=== PATIENT | female | born 1990 | race Caucasian/White ===

== ENCOUNTER 2021-06-21 10:48 | Emergency (ER) | payer OTHER, SELFPAY ==
[2021-06-21 10:58] VITALS: BP 119/59; PULSE 80; RESP 20; TEMP 36.6; O2SAT 100
--- NOTE | 2021-06-21 11:50 | ED.URI ---
HPI - URI/Sore Throat General Chief Complaint: Upper Respiratory Infection Stated Complaint: Sinus Pain/ Ear Pain Time Seen by Provider: 06/21/21 11:45 Source: patient and RN notes reviewed Mode of arrival: ambulatory Limitations: no limitations History of Present Illness HPI Narrative: Kendra is a 31-year-old female who ambulated to the [facility]. Patient states she has a 3-day history of severe left ear pain rating it a 9 out of 10. She states she has had sinus drainage and sinus pain with postnasal drainage and now she feels that she is starting to get short of breath. Patient has been taking Coricidin [id number] and Tylenol 3 without relief. Patient has a strong cardiac history and currently has a loop recorder in place. Patient has a history of bronchitis currently smokes 1 pack/day. MD elicited complaint: sinus pain Related Data Home Medications Medication Instructions Recorded Confirmed acetaminophen-codeine tablet 06/21/21 albuterol sulfate INHALATION 06/21/21 albuterol sulfate See Rx Instructions .ROUTE 06/21/21 06/21/21 .COMPLEX PRN alprazolam 06/21/21 cyclobenzaprine 10 mg PO TID PRN 06/21/21 06/21/21 diltiazem HCl PO 06/21/21 esomeprazole magnesium mg 06/21/21 hydroxyzine HCl 06/21/21 omeprazole 06/21/21 ondansetron 06/21/21 Allergies Allergy/AdvReac Type Severity Reaction Status Date / Time ciprofloxacin Allergy Unknown Unknown Verified 06/21/21 11:41 dexamethasone Allergy Unknown LOC Verified 10/20/18 10:51 diphenhydramine Allergy Unknown Rash Verified 06/21/21 11:41 divalproex sodium Allergy Unknown Unknown Verified 06/21/21 11:41 escitalopram Allergy Unknown Seizure Verified 06/21/21 11:42 levofloxacin Allergy Unknown Unknown Verified 06/21/21 11:41 metoclopramide Allergy Unknown Unknown Verified 06/21/21 11:41 venlafaxine Allergy Unknown Unknown Verified 06/21/21 11:41 prednisone AdvReac Heartburn Verified 06/21/21 11:41 Review of Systems Review of Systems: CONSTITUTIONAL: Denies body aches, fever, chills, or sweats. EYES: Denies visual changes, redness, or discharge. ENT: Denies rhinorrhea,+ congestion,+ sore throat, + otalgia. CARDIOVASCULAR: Denies chest pain, palpitations, or edema. RESPIRATORY: + cough + dyspnea. GASTROINTESTINAL: Denies abdominal pain, nausea, vomiting, or diarrhea. GENITOURINARY: Denies dysuria or hematuria. SKIN: Denies rash, itching, or wounds. MUSCULOSKELETAL: Denies back pain, joint pain, or myalgia. NEUROLOGIC: Denies headache, numbness, tingling, or weakness. PSYCH: Denies depression or anxiety. All systems reviewed & are unremarkable except as noted in HPI and below PMFSH Comments At time of signature, I have reviewed and agree with nursing past medical, surgical, social and family history unless otherwise noted. Please see nursing chart for further information. There is no relevant family history pertinent to the presenting complaint Exam Narrative: GENERAL: Well-appearing, well-nourished, and in no acute distress. HEAD: Normocephalic, atraumatic. EYES: EOMI. No redness or drainage. Conjunctivae normal. ENT: Mucous membranes pink and moist. Nasal membranes erythematous with clear rhinorrhea. Posterior pharynx is erythemic with no exudate with moderate amount of clear postnasal drainage. Right tympanic membrane is opaque with moderate bulging. Left tympanic membrane is bulging and erythemic. NECK: Normal AROM. Supple. left anterior lymphadenopathy. CHEST: No respiratory distress. Clear to auscultation. MUSCULOSKELETAL: No bony tenderness. EXTREMITIES: Normal range of motion. No edema. SKIN: Warm, dry, no rash. Capillary refill normal. Normal skin turgor. NEURO: No focal deficits. Alert and oriented x3. Gait steady. PSYCH: Normal affect. No signs of depression or anxiety. Course Vital Signs Vital signs: Vital Signs Temperature 36.6 C 06/21/21 10:58 Pulse Rate 80 06/21/21 10:58 Respiratory Rate 20 06/21/21 10:
== END 2021-06-21 12:00 | disposition home or self-care (01) ==
PROVIDERS: Emergency Provider Nurse Practitioner Family; PCP Physician Assistant
DX: H66.002 Acute suppurative otitis media without spontaneous rupture of ear drum, left ear (principal); I48.91 Unspecified atrial fibrillation; I25.2 Old myocardial infarction; J45.909 Unspecified asthma, uncomplicated; K21.9 Gastro-esophageal reflux disease without esophagitis; F41.9 Anxiety disorder, unspecified
CPT/HCPCS: 99213; G0463

== ENCOUNTER 2021-07-15 17:31 | Emergency (ER) | payer OTHER, SELFPAY ==
--- NOTE | 2021-07-15 17:35 | ED.SKABFB ---
HPI - Skin/Abscess/Foreign Bdy General Chief complaint: Skin/Abscess/Foreign Body Stated complaint: Rash Time Seen by Provider: 07/15/21 17:58 Source: patient and RN notes reviewed Mode of arrival: ambulatory Limitations: no limitations History of Present Illness HPI narrative: 31-year-old female presents concern for rash on her abdomen. She reports noticing a painful itchy rash in the fold of her abdomen. Reports she is currently experiencing a herpes outbreak. Reports she has a low-dose acyclovir that she takes when she has herpes outbreaks but it is not working for the rash on her stomach. Reports her herpes outbreak started 3 days ago rash on her stomach started yesterday. She reports general malaise and body aches. MD complaint: rash Related Data Home Medications Medication Instructions Recorded Confirmed acetaminophen-codeine 1 tablet PO TID PRN 06/21/21 07/15/21 albuterol sulfate 2 inh INHALATION QID PRN 06/21/21 07/15/21 albuterol sulfate See Rx Instructions .ROUTE 06/21/21 07/15/21 .COMPLEX PRN alprazolam 0.5 mg PO TID PRN 06/21/21 07/15/21 cyclobenzaprine 10 mg PO TID PRN 06/21/21 07/15/21 esomeprazole magnesium 40 mg PO BID 06/21/21 07/15/21 hydroxyzine HCl 25 mg PO TID PRN 06/21/21 07/15/21 omeprazole 20 mg PO DAILY 06/21/21 07/15/21 Allergies Allergy/AdvReac Type Severity Reaction Status Date / Time ciprofloxacin Allergy Unknown Unknown Verified 07/15/21 17:45 dexamethasone Allergy Unknown LOC Verified 07/15/21 17:45 diphenhydramine Allergy Unknown Rash Verified 07/15/21 17:45 divalproex sodium Allergy Unknown Unknown Verified 07/15/21 17:45 escitalopram Allergy Unknown Seizure Verified 07/15/21 17:45 levofloxacin Allergy Unknown Unknown Verified 07/15/21 17:45 metoclopramide Allergy Unknown Unknown Verified 07/15/21 17:45 venlafaxine Allergy Unknown Unknown Verified 07/15/21 17:45 prednisone AdvReac Heartburn Verified 07/15/21 17:45 Review of Systems Review of Systems: CONSTITUTIONAL: Reports malaise, chills, sweats, or fever. CARDIOVASCULAR: Denies chest pain, palpitations, or edema. RESPIRATORY: Denies cough or dyspnea. GASTROINTESTINAL: Denies abdominal pain, nausea, vomiting, diarrhea, bloody, or mucous stools. GENITOURINARY: Denies dysuria or hematuria. SKIN: Reports genital herpes outbreak, reports itchy stinging [id number] abdominal apron. MUSCULOSKELETAL: Reports myalgia. All systems reviewed & are unremarkable except as noted in HPI and below PMFSH Comments At time of signature, agree with nursing past medical, surgical, social and family history. There is no relevant family history pertinent to the presenting complaint Exam Narrative: GENERAL: Well-appearing, well-nourished, and in no acute distress. HEAD: Normocephalic, atraumatic. EYES: PERRLA, conjunctivae clear ENT: Mucous membranes moist. NECK: Supple. No lymphadenopathy CHEST: Clear to auscultation. No respiratory distress. HEART: Regular rate and rhythm. SKIN: Warm, dry. 2 erythematous slightly raised irregular patches noted in the fold of the abdominal, no vesicles or drainage noted NEURO: Alert and oriented x3. PSYCH: Normal mood and affect Course Course Emergency Course: Patient is aware of diagnosis, understands and agrees to treatment plan. Anticipatory guidance given. Patient agrees to follow-up as directed and is aware of reasons to seek care at the emergency department. Portions of this record may have been created with voice recognition software Vital Signs Vital signs: Reviewed. MDM - Skin/Abscess/Foreign Bdy MDM Narrative Medical decision making narrative: Does not appear at this time to be erythema multiforme, bullous, SJS, TEN; no evidence at this time to suggest RMSF, endocarditis or Lyme disease; patient looks well, nontoxic and is tolerating oral intake; no neurologic signs or symptoms; no headache, photophobia or neck pain; afebrile; appropriate for initial outpatient treatment; discussed the importance
[2021-07-15 17:36] VITALS: BP 117/71; PULSE 97; RESP 16; TEMP 36.8; O2SAT 100
== END 2021-07-15 18:19 | disposition home or self-care (01) ==
PROVIDERS: Emergency Provider Nurse Practitioner; PCP Physician Assistant
DX: R21 Rash and other nonspecific skin eruption (principal); I48.91 Unspecified atrial fibrillation; I25.2 Old myocardial infarction; K21.9 Gastro-esophageal reflux disease without esophagitis; F41.9 Anxiety disorder, unspecified
CPT/HCPCS: 99213; G0463

== ENCOUNTER 2021-11-05 11:06 | Emergency (ER) | payer OTHER, SELFPAY ==
[2021-11-05 11:15] VITALS: BP 125/78; PULSE 90; RESP 18; TEMP 36.8; O2SAT 99
--- NOTE | 2021-11-05 11:17 | ED.URI ---
HPI - URI/Sore Throat General Chief Complaint: Upper Respiratory Infection Stated Complaint: cough congestion sore throat Time Seen by Provider: 11/05/21 11:33 Source: patient and RN notes reviewed Mode of arrival: ambulatory Limitations: no limitations History of Present Illness HPI Narrative: 31-year-old female presents with concern for sore throat, nasal congestion, rhinorrhea, fatigue for 2 days. Reports history of strep throat. She reports she has been taking [id number] cold medicines but there are exacerbating her heartburn. She denies fever, body aches, shortness of breath. MD elicited complaint: sore throat Related Data Home Medications Medication Instructions Recorded Confirmed acetaminophen-codeine 1 tablet PO TID PRN 06/21/21 11/05/21 albuterol sulfate 2 inh INHALATION QID PRN 06/21/21 11/05/21 albuterol sulfate See Rx Instructions .ROUTE 06/21/21 11/05/21 .COMPLEX PRN alprazolam 0.5 mg PO TID PRN 06/21/21 11/05/21 cyclobenzaprine 10 mg PO TID PRN 06/21/21 11/05/21 esomeprazole magnesium 40 mg PO BID 06/21/21 11/05/21 hydroxyzine HCl 25 mg PO TID PRN 06/21/21 11/05/21 omeprazole 20 mg PO DAILY 06/21/21 11/05/21 ondansetron 4 mg PO DAILY PRN 11/05/21 11/05/21 Allergies Allergy/AdvReac Type Severity Reaction Status Date / Time ciprofloxacin Allergy Unknown Unknown Verified 11/05/21 11:24 dexamethasone Allergy Unknown LOC Verified 11/05/21 11:24 diphenhydramine Allergy Unknown Rash Verified 11/05/21 11:24 divalproex sodium Allergy Unknown Unknown Verified 11/05/21 11:24 escitalopram Allergy Unknown Seizure Verified 11/05/21 11:24 levofloxacin Allergy Unknown Unknown Verified 11/05/21 11:24 metoclopramide Allergy Unknown Unknown Verified 11/05/21 11:24 venlafaxine Allergy Unknown Unknown Verified 11/05/21 11:24 prednisone AdvReac Heartburn Verified 11/05/21 11:24 Review of Systems Review of Systems: CONSTITUTIONAL: Reports malaise, fatigue. Denies chills, sweats, or fever. EYES: Denies visual changes, redness, or discharge. ENT: Reports rhinorrhea, congestion, ear pressure and sore throat. CARDIOVASCULAR: Denies chest pain, palpitations, or edema. RESPIRATORY: Reports cough. Denies dyspnea. GASTROINTESTINAL: Denies abdominal pain, nausea, vomiting, diarrhea SKIN: Denies rash or itching. MUSCULOSKELETAL: Denies myalgia. NEUROLOGIC: Denies headache. All systems reviewed & are unremarkable except as noted in HPI and below PMFSH Comments At time of signature, agree with nursing past medical, surgical, social and family history. There is no relevant family history pertinent to the presenting complaint Exam Narrative: GENERAL: Well-appearing, well-nourished, and in no acute distress. HEAD: Normocephalic EYES: PERRLA, conjunctivae clear ENT: Nares clear, turbinates edematous and erythematous, clear discharge. Mucous membranes moist. TM pearly loaiza with dull light reflex bilaterally; no tragal tenderness. Oropharynx not erythematous without lesions. Tonsils not enlarged and without exudate, no drooling, no hoarseness, no trismus, uvula midline. NECK: Supple. No lymphadenopathy CHEST: Clear to auscultation, breath sounds equal. No wheezing, rhonchi, rales, or stridor. No respiratory distress, speaks in full sentences. HEART: Regular rate and rhythm. No murmur heard. SKIN: Warm, dry, no rash. NEURO: Alert and oriented x3. PSYCH: Normal mood and affect Course Course Emergency Course: Patient is aware of diagnosis, understands and agrees to treatment plan. Anticipatory guidance given. Patient agrees to follow-up as directed and is aware of reasons to seek care at the emergency department. Portions of this record may have been created with voice recognition software Level of Care: Express Care Visit Vital Signs Vital signs: Reviewed. MDM - URI/Sore Throat MDM Narrative Medical decision making narrative: Differential diagnosis considered: [place] virus, strep pharyngitis, allergic rhinitis, upper respiratory
--- NOTE | 2021-11-06 11:32 | PC.NURSE ---
PT CALLED STATING SHE WAS PROGRESSIVELY WORSE, [facility] HAS NEVER WORKED FOR HER. PT TESTED POSITIVE FOR STREP AND NEGATIVE COVID AND WANTED TO KNOW IF WE SENT A PCR. I INFORMED PT THAT RAPIDS HAVE A HIGH FALSE NEGATIVE BUT IF SHE WAS POSITIVE THE TREATMENT PLAN WOULD STILL BE THE SAME COVID IS A VIRUS. PT REPLIED, I REALIZE THAT I'M NOT STUPID . I TOLD PT I WOULD CHECK CHART AND CALL HER BACK SOON I COULD BECAUSE WE WERE BUSY AND HAD ALL OUR ROOMS FULL. I CALLED PT BACK, I INSTRUCTED PT THAT WE DID NOT SEND A PCR, BECAUSE SHE WAS POSITIVE FOR STREP. I INSTRUCTED PT THAT [facility] IS NUMBER ONE RECOMMENDED CHOICE FOR STREP AND THAT IF SHE FEELS THAT SHE IS WORSE SHE SHOULD GO TO THE ER. SHE HAS HAD A TOTAL OF 3 DOSES. ALSO INSTRUCTED PT TO FOLLOW UP WITH HER PCP IF SHE NEEDED TO IN 2 TO 3 DAYS. PT STATED THAT SHE WISHED THEY WOULD HAVE GIVEN HER A STRONGER ANTIBIOTIC. I AGAIN INFORMED PT THAT ACCORDING TO GUIDELINES [facility] IS THE NUMBER ONE CHOICE FOR STREP. PT UNDERSTOOD AND SAID, THANK YOU. JENNIFER UGARTE RN.
== END 2021-11-05 11:45 | disposition home or self-care (01) ==
PROVIDERS: Emergency Provider Nurse Practitioner; PCP Physician Assistant
DX: J02.0 Streptococcal pharyngitis (principal); Z20.822 Contact with and (suspected) exposure to COVID-19; I25.2 Old myocardial infarction; F41.9 Anxiety disorder, unspecified; F41.0 Panic disorder [episodic paroxysmal anxiety]
CPT/HCPCS: 87426; 87804; 87880; 99213; C9803; G0463

== ENCOUNTER 2021-12-12 08:14 | Emergency (ER) | payer OTHER, SELFPAY ==
[2021-12-12 08:18] VITALS: BP 155/82; PULSE 79; RESP 20; TEMP 36.6; O2SAT 100
--- NOTE | 2021-12-12 08:18 | ED.URI ---
HPI - URI/Sore Throat General Chief Complaint: Upper Respiratory Infection Stated Complaint: upper respiratory Time Seen by Provider: 12/12/21 08:18 Source: patient and RN notes reviewed History of Present Illness HPI Narrative: Patient is a 31-year-old female who presents the urgent care with complaints of upper respiratory symptoms for the last 4 days with cough, mild sore throat and intermittent shortness of breath. Patient does have a history of asthma and has been using her treatments and inhalers. Patient states that in the past she has been placed on steroids which do tend to help with symptoms however messes up her stomach . Patient denies any known fevers. Denies of any exposures. No other acute complaints. No acute distress noted. Patient aware of the plan of care. Some parts of this dictation were generated by voice recognition software and may contain typographical and/or grammatical inaccuracies. Related Data Home Medications Medication Instructions Recorded Confirmed acetaminophen-codeine 1 tablet PO TID PRN 06/21/21 11/05/21 albuterol sulfate 2 inh INHALATION QID PRN 06/21/21 11/05/21 albuterol sulfate See Rx Instructions .ROUTE 06/21/21 11/05/21 .COMPLEX PRN alprazolam 0.5 mg PO TID PRN 06/21/21 11/05/21 cyclobenzaprine 10 mg PO TID PRN 06/21/21 11/05/21 esomeprazole magnesium 40 mg PO BID 06/21/21 11/05/21 hydroxyzine HCl 25 mg PO TID PRN 06/21/21 11/05/21 omeprazole 20 mg PO DAILY 06/21/21 11/05/21 Allergies Allergy/AdvReac Type Severity Reaction Status Date / Time ciprofloxacin Allergy Unknown Unknown Verified 12/12/21 08:27 dexamethasone Allergy Unknown LOC Verified 12/12/21 08:27 diphenhydramine Allergy Unknown Rash Verified 12/12/21 08:27 divalproex sodium Allergy Unknown Unknown Verified 12/12/21 08:27 escitalopram Allergy Unknown Seizure Verified 12/12/21 08:27 levofloxacin Allergy Unknown Unknown Verified 12/12/21 08:27 metoclopramide Allergy Unknown Unknown Verified 12/12/21 08:27 venlafaxine Allergy Unknown Unknown Verified 12/12/21 08:27 prednisone AdvReac Heartburn Verified 12/12/21 08:27 Review of Systems Review of Systems: CONSTITUTIONAL: Denies fever, chills, or sweats. EYES: Denies visual changes, redness, or discharge. ENT: Reports of nasal congestion, rhinorrhea, postnasal drainage, mild sore throat CARDIOVASCULAR: Denies chest pain, palpitations, or edema. RESPIRATORY: Reports of cough, increased wheezing GASTROINTESTINAL: Denies abdominal pain, nausea, vomiting, or diarrhea. GENITOURINARY: Denies dysuria or hematuria. SKIN: Denies rash or itching. MUSCULOSKELETAL: Denies back pain, joint pain, or myalgia. NEUROLOGIC: Denies headache, numbness, or weakness. All other systems reviewed are negative, except as documented in HPI. PMFSH Comments At the time of my signature, I reviewed and agree with the nursing past medical, surgical, social, and family history. There is no relevant family history pertinent to the patient complaint. Exam Narrative: GENERAL: This is a well-nourished, well-developed patient, in no apparent distress. HEAD: normocephalic, atraumatic. EYES: PERRL. Sclera clear/white. Vision is grossly intact. EARS: External ears normal, auditory canals clear and without drainage, TMs normal without perforation. Hearing grossly intact. NOSE: External nose normal with no obvious nasal discharge, bilateral erythemic nares with clear to yellow rhinorrhea. THROAT: Mucous membranes moist, posterior pharynx clear. Moderate postnasal drainage NECK: Neck supple, non-tender without lymphadenopathy, masses or thyromegaly. CARDIOVASCULAR: Regular rate and rhythm without murmurs, gallops, or rubs. RESPIRATORY: Crackles/wheezes throughout, harsh cough noted throughout exam SKIN: warm, intact with no suspicious lesions or rash, good texture and turgor. NEURO: awake, alert, and oriented to person, place and time. There were no obvious focal neurologic abnormalities. EXTREMITIES: No clubbi
== END 2021-12-12 08:49 | disposition home or self-care (01) ==
PROVIDERS: Emergency Provider Nurse Practitioner Family; PCP Physician Assistant
DX: J40 Bronchitis, not specified as acute or chronic (principal); I25.2 Old myocardial infarction; K21.9 Gastro-esophageal reflux disease without esophagitis
CPT/HCPCS: 99213; G0463

== ENCOUNTER 2022-06-05 10:51 | Emergency (ER) | payer OTHER, SELFPAY ==
[2022-06-05 11:01] VITALS: BP 129/70; PULSE 93; RESP 16; TEMP 36.5; O2SAT 100
--- NOTE | 2022-06-05 12:14 | ED.EAR ---
HPI - Ear Problem General Chief complaint: Ear Stated complaint: ear pain Time Seen by Provider: 06/05/22 12:08 Source: patient and RN notes reviewed Mode of arrival: ambulatory Limitations: no limitations History of Present Illness HPI Narrative: 32-year-old female presented for complaint of sinus pressure and right ear pain and itching, she states this is causing a migraine. She endorses slight productive cough. Denies shortness of breath, wheezing, nausea, vomiting, fevers or chills. Taking Tylenol #3 for chronic pain without relief. Related Data Home Medications Medication Instructions Recorded Confirmed acetaminophen 300 mg-codeine 30 mg 1 tablet PO TID PRN pain 06/21/21 06/05/22 tablet albuterol sulfate 2.5 mg/3 mL See Rx Instructions .Route 06/21/21 06/05/22 (0.083 %) solution for nebulization .COMPLEX PRN sob alprazolam 0.5 mg tablet 0.5 mg PO TID PRN Anxiety 06/21/21 06/05/22 cyclobenzaprine 10 mg tablet 10 mg PO TID PRN Pain 06/21/21 06/05/22 hydroxyzine HCl 25 mg tablet 25 mg PO TID PRN Anxiety 06/21/21 06/05/22 Allergies Allergy/AdvReac Type Severity Reaction Status Date / Time ciprofloxacin Allergy Unknown Unknown Verified 06/05/22 11:36 dexamethasone Allergy Unknown LOC Verified 06/05/22 11:36 diphenhydramine Allergy Unknown Rash Verified 06/05/22 11:36 divalproex sodium Allergy Unknown Unknown Verified 06/05/22 11:36 escitalopram Allergy Unknown Seizure Verified 06/05/22 11:36 levofloxacin Allergy Unknown Unknown Verified 06/05/22 11:36 metoclopramide Allergy Unknown Unknown Verified 06/05/22 11:36 venlafaxine Allergy Unknown Unknown Verified 06/05/22 11:36 prednisone AdvReac Heartburn Verified 06/05/22 11:36 Review of Systems Review of Systems: CONSTITUTIONAL: denies malaise, chills, sweats, fever EYES: Denies visual changes, redness, or discharge ENT: Reports rhinorrhea, congestion, sinus pain CARDIOVASCULAR: Denies chest pain, palpitations, edema RESPIRATORY: Reports cough, post nasal drainage. Denies dyspnea GASTROINTESTINAL: Denies abdominal pain, nausea, vomiting, diarrhea SKIN: Denies rash or itching MUSCULOSKELETAL: denies myalgia NEUROLOGIC: endorses headache Exam Narrative: GENERAL: Ill-appearing, nontoxic EYES: conjunctivae clear ENT: Mucous membranes moist. TMs pearly loaiza with dull light reflex bilaterally; no tragal tenderness. Oropharynx erythematous without lesions or exudate, no drooling, no hoarseness, no trismus, uvula midline. NECK: Supple. No lymphadenopathy CHEST: Clear to auscultation, breath sounds equal. HEART: Regular rate and rhythm. SKIN: Warm, dry, no rash. NEURO: Alert and oriented x3. PSYCH: Normal mood and affect Course Course Emergency Course: Patient is aware of diagnosis, understands and agrees to treatment plan. Anticipatory guidance given. Patient agrees to follow-up as directed and is aware of reasons to seek care at the emergency department. Portions of this record may have been created with voice recognition software Level of Care: Express Care Visit Vital Signs Vital signs: Vital Signs Temperature 97.7 F 06/05/22 11:01 Pulse Rate 93 06/05/22 11:01 Respiratory Rate 16 06/05/22 11:01 Blood Pressure 129/70 06/05/22 11:01 Pulse Oximetry 100 06/05/22 11:01 Oxygen Delivery Room Air 06/05/22 11:01 Temperature 97.7 F 06/05/22 11:01 Pulse Rate 93 06/05/22 11:01 Respiratory Rate 16 06/05/22 11:01 Blood Pressure 129/70 06/05/22 11:01 Pulse Oximetry 100 06/05/22 11:01 Oxygen Delivery Room Air 06/05/22 11:01 reviewed Medical Decision Making MDM Narrative Medical decision making narrative: Advised supportive measures and signs/symptoms to go to the ER. Abx if symptoms persist for 10 days. Pt is appropriate for outpt treatment and f/u. Differential Diagnosis Differential Diagnosis: Influenza, covid, sinusitis, OM, strep pharyngitis, URI Vital Signs Vital Signs: Vital Signs Temperature 97.7 F
== END 2022-06-05 12:28 | disposition home or self-care (01) ==
PROVIDERS: Emergency Provider Nurse Practitioner Family; PCP Physician Assistant
DX: J06.9 Acute upper respiratory infection, unspecified (principal)
CPT/HCPCS: 99213; G0463

== ENCOUNTER 2022-09-26 10:38 | Emergency (ER) | payer OTHER, SELFPAY ==
[2022-09-26 10:42] VITALS: BP 122/88; PULSE 107; RESP 20; TEMP 36.7; O2SAT 100
--- NOTE | 2022-09-26 11:06 | ED.SKABFB ---
HPI - Skin/Abscess/Foreign Bdy General Chief complaint: Skin/Abscess/Foreign Body Stated complaint: Skin Problem Time Seen by Provider: 09/26/22 11:06 Source: patient, RN notes reviewed and old records reviewed Mode of arrival: ambulatory Limitations: no limitations History of Present Illness HPI narrative: 32 year old female who presents to express care with complaints of swelling and red raised area to right upper eyelid under eyebrow inner region with no itching verbalized to site. Patient reports that she used a brand of eye shadow over the weekend that she found out has been recalled, also reports that she wonders if she could of gotten bit by some bug. Lesion is firm in appearance with no pustule formation,0.25 cm diameter and is minimally warm to touch with redness denies any itching. MD complaint: lesion (red raised) Onset (ago): day(s) (since yesterday) Location: face (below right eyebrow) Severity scale (1-10): 4 Quality: aching Treatments prior to arrival: none Related Data Home Medications Medication Instructions Recorded Confirmed alprazolam 0.5 mg tablet 0.5 mg PO TID PRN Anxiety 06/21/21 09/26/22 acetaminophen 300 mg-codeine 30 mg See Rx Instructions .Route .COMPLEX 09/26/22 09/26/22 tablet acyclovir 400 mg tablet 400 mg PO DAILY 09/26/22 09/26/22 albuterol sulfate 90 mcg/actuation See Rx Instructions .Route .COMPLEX 09/26/22 09/26/22 aerosol inhaler fluoxetine 20 mg capsule 20 mg PO DAILY 09/26/22 09/26/22 metoprolol tartrate 25 mg tablet 25 mg PO DAILY 09/26/22 09/26/22 nystatin 100,000 unit/gram topical See Rx Instructions .Route .COMPLEX 09/26/22 09/26/22 cream omeprazole 20 mg capsule,delayed 20 mg PO BID 09/26/22 09/26/22 release Allergies Allergy/AdvReac Type Severity Reaction Status Date / Time ciprofloxacin Allergy Unknown Unknown Verified 09/26/22 11:02 dexamethasone Allergy Unknown LOC Verified 09/26/22 11:02 diphenhydramine Allergy Unknown Rash Verified 09/26/22 11:02 divalproex sodium Allergy Unknown Unknown Verified 09/26/22 11:02 escitalopram Allergy Unknown Seizure Verified 09/26/22 11:02 levofloxacin Allergy Unknown Unknown Verified 09/26/22 11:02 metoclopramide Allergy Unknown Unknown Verified 09/26/22 11:02 venlafaxine Allergy Unknown Unknown Verified 09/26/22 11:02 prednisone AdvReac Heartburn Verified 09/26/22 11:02 Review of Systems Review of Systems: CONSTITUTIONAL: Denies fever, chills, or sweats. EYES: Denies visual changes, redness, or discharge, no nystagmus or any visual changes. ENT: Denies rhinorrhea, congestion, sore throat, or otalgia. CARDIOVASCULAR: Denies chest pain, palpitations, or edema. RESPIRATORY: Denies cough or dyspnea. GASTROINTESTINAL: Denies abdominal pain, nausea, vomiting, or diarrhea. GENITOURINARY: Denies dysuria or hematuria. SKIN: Denies rash or itching Raised red lesion below right eyebrow .25 diameter without itching MUSCULOSKELETAL: Denies back pain, joint pain, or myalgia. NEUROLOGIC: Denies headache, numbness, or weakness. PSYCHIATRIC: Reports history of anxiety or depression. All systems reviewed & are unremarkable except as noted in HPI and below PMFSH Past Medical History Medical History (Updated 09/27/22 @ 08:13 by Irene Harrell NP) Acute anxiety Migraine SVT (supraventricular tachycardia) Surgical History Surgical History (Updated 09/27/22 @ 08:12 by Irene Harrell NP) H/O cardiac radiofrequency ablation History of tonsillectomy and adenoidectomy Previous section X2 Social History Social History (Updated 09/27/22 @ 08:13 by Irene Harrell NP) Living arrangements: with family Gender identity (if verbalized by the patient): Female Comments At time of signature, agree with nursing past medical, surgical, social and family history. There is no relevant family history pertinent to the presenting complaint Exam Narrative: GENERAL: Well-appearing, well-nourished, and in no acute distress. HEAD
== END 2022-09-26 11:35 | disposition home or self-care (01) ==
PROVIDERS: Emergency Provider Registered Nurse; PCP Physician Assistant
DX: H02.9 Unspecified disorder of eyelid (principal); F41.9 Anxiety disorder, unspecified
CPT/HCPCS: 99213; G0463

== ENCOUNTER 2022-10-15 19:32 | Emergency (ER) | payer OTHER, SELFPAY ==
[2022-10-15 19:36] VITALS: BP 120/68; PULSE 94; RESP 20; TEMP 36.7; O2SAT 100
--- NOTE | 2022-10-15 19:55 | ED.GENADULT ---
HPI - General Adult General Chief complaint: Skin/Abscess/Foreign Body Stated complaint: bug bite Source: patient Mode of arrival: ambulatory Limitations: no limitations History of Present Illness HPI narrative: Patient presents for evaluation of itching and redness to the right hand and right forearm. She indicates she experienced some pruritus yesterday. She noted redness and swelling to the right hand and right forearm. She is unsure whether she experienced an insect bite. No new lotions, soaps, detergents, topical products. She states she is allergic to Benadryl. She states she is having severe pain shooting up her arm. No fever chills, nausea, vomiting. She states she was seen here recently for a bump to her right upper eyelid that was engulfing (her) eye and was given Bactrim at that time. She states she cannot tolerate ice application. She is already taking Claritin. At the time of my initial evaluation she is using expletives, mocking me throughout her interview. She had prednisone listed as an allergy in her chart. When I questioned her further about this, she said she is able to tolerate steroids and will double up on (her) heart medicine . Related Data Home Medications Medication Instructions Recorded Confirmed alprazolam 0.5 mg tablet 0.5 mg PO TID PRN Anxiety 06/21/21 10/15/22 acetaminophen 300 mg-codeine 30 mg See Rx Instructions .Route .COMPLEX 09/26/22 10/15/22 tablet acyclovir 400 mg tablet 400 mg PO DAILY 09/26/22 10/15/22 albuterol sulfate 90 mcg/actuation See Rx Instructions .Route .COMPLEX 09/26/22 10/15/22 aerosol inhaler fluoxetine 20 mg capsule 20 mg PO DAILY 09/26/22 10/15/22 metoprolol tartrate 25 mg tablet 25 mg PO DAILY 09/26/22 10/15/22 omeprazole 20 mg capsule,delayed 20 mg PO BID 09/26/22 10/15/22 release Allergies Allergy/AdvReac Type Severity Reaction Status Date / Time ciprofloxacin Allergy Unknown Unknown Verified 10/15/22 19:36 dexamethasone Allergy Unknown LOC Verified 10/15/22 19:36 diphenhydramine Allergy Unknown Rash Verified 10/15/22 19:36 divalproex sodium Allergy Unknown Unknown Verified 10/15/22 19:36 escitalopram Allergy Unknown Seizure Verified 10/15/22 19:36 levofloxacin Allergy Unknown Unknown Verified 10/15/22 19:36 metoclopramide Allergy Unknown Unknown Verified 10/15/22 19:36 venlafaxine Allergy Unknown Unknown Verified 10/15/22 19:36 Review of Systems Review of Systems: CONSTITUTIONAL: Denies fever, chills, or sweats. EYES: Denies visual changes, redness, or discharge. ENT: Denies rhinorrhea, congestion, sore throat, or otalgia. CARDIOVASCULAR: Denies chest pain, palpitations, or edema. RESPIRATORY: Denies cough or dyspnea. GASTROINTESTINAL: Denies abdominal pain, nausea, vomiting, or diarrhea. GENITOURINARY: Denies dysuria or hematuria. SKIN: Reports redness and itching to the right hand and right forearm MUSCULOSKELETAL: Reports pain in the right upper arm NEUROLOGIC: Denies headache, numbness, dizziness, or weakness. PSYCHIATRIC: Denies anxiety or depression. PMFSH Past Medical History Medical History Acute anxiety Migraine SVT (supraventricular tachycardia) Surgical History Surgical History H/O cardiac radiofrequency ablation History of tonsillectomy and adenoidectomy Previous section X2 Family History Family History Mother Family history non-contributory Social History Social History (Updated 10/15/22 @ 20:01 by YARITZA Mohamud, ) Substance use: never Living arrangements: with family Gender identity (if verbalized by the patient): Female Sexual Orientation (if Verbalized by the Patient): Straight or Heterosexual Spiritual care concerns: No Exam Narrative: GENERAL: Well-appearing, well-nourished, and in no acute distress. H
== END 2022-10-15 20:00 | disposition home or self-care (01) ==
PROVIDERS: Emergency Provider Nurse Practitioner; PCP Physician Assistant
DX: L53.9 Erythematous condition, unspecified (principal); T78.40XA Allergy, unspecified, initial encounter; F41.9 Anxiety disorder, unspecified
CPT/HCPCS: 99213; G0463

== ENCOUNTER 2023-02-02 08:16 | Emergency (ER) | payer OTHER, SELFPAY ==
--- NOTE | 2023-02-02 08:37 | ED.FEMALEGU ---
HPI - Female Genitourinary General Chief complaint: Urogenital-Female Stated complaint: poss uti Time Seen by Provider: 02/02/23 08:30 Source: patient Mode of arrival: ambulatory Limitations: no limitations History of Present Illness HPI Narrative: Kendra is a 32-year-old female patient presenting to the clinic today with complaints of a possible urinary tract infection. She reports she is having burning, frequency, urgency over the last 1-2 days. States she is taking medications for a yeast infection and is finishing that today. States she is still having some vaginal itching but it has improved. History of genital herpes however she denies any outbreak currently. States over the last 1-2 days she has had very dark urine. Is taking sodium pills for POTS syndrome. Is concerned about dehydration. Related Data Home Medications Medication Instructions Recorded Confirmed alprazolam 0.5 mg tablet 0.5 mg PO TID PRN Anxiety 06/21/21 02/02/23 acetaminophen 300 mg-codeine 30 mg See Rx Instructions .Route .COMPLEX 09/26/22 02/02/23 tablet acyclovir 400 mg tablet 400 mg PO DAILY 09/26/22 02/02/23 omeprazole 20 mg capsule,delayed 20 mg PO BID 09/26/22 02/02/23 release sodium chloride 1,000 mg soluble 1,000 mg PO DAILY 02/02/23 02/02/23 tablet Allergies Allergy/AdvReac Type Severity Reaction Status Date / Time ciprofloxacin Allergy Unknown Unknown Verified 02/02/23 08:35 dexamethasone Allergy Unknown LOC Verified 02/02/23 08:35 diphenhydramine Allergy Unknown Rash Verified 02/02/23 08:35 divalproex sodium Allergy Unknown Unknown Verified 02/02/23 08:35 escitalopram Allergy Unknown Seizure Verified 02/02/23 08:35 levofloxacin Allergy Unknown Unknown Verified 02/02/23 08:35 metoclopramide Allergy Unknown Unknown Verified 02/02/23 08:35 venlafaxine Allergy Unknown Unknown Verified 02/02/23 08:35 Review of Systems Review of Systems: Pertinent positives per HPI. Patient denies any fever, chills, rash, headache, visual changes, dizziness, cough, runny nose, sore throat, shortness of breath, chest pain, palpitations, nausea, vomiting, diarrhea, constipation, or any abdominal pain. [facility] Past Medical History Medical History Acute anxiety Migraine SVT (supraventricular tachycardia) Surgical History Surgical History H/O cardiac radiofrequency ablation History of tonsillectomy and adenoidectomy Previous section X2 Family History Family History Mother Family history non-contributory Social History Social History (Updated 10/15/22 @ 20:01 by YARITZA Mohamud, ) Substance use: never Living arrangements: with family Gender identity (if verbalized by the patient): Female Sexual Orientation (if Verbalized by the Patient): Straight or Heterosexual Spiritual care concerns: No Comments At the time of my signature, I reviewed and agree with the nursing past medical, surgical, social, and family history. There is no relevant family history pertinent to the patient complaint. Exam Narrative: General: Well-developed, well nourished, in no apparent distress. Head: Normocephalic, atraumatic. Cardio: Regular rate and rhythm, s1 and s2 normal, no murmur appreciated. Resp: Clear to auscultation bilaterally, no rhonchi, rales, wheezing or rubs. Abdomen: Soft, pliable, bowel sounds present in all quadrants, mild tender to palpation over the suprapubic bladder, no organomegly, no CVAT tenderness. Course Course Emergency Course: Portions of this record may have been created with voice recognition software. Level of Care: Express Care Visit Vital Signs Vital signs: Vital signs reviewed MDM - Female Genitourinary MDM Narrative Medical decision making narrative: At the time of visit patient is resting on the
== END 2023-02-02 08:52 | disposition home or self-care (01) ==
PROVIDERS: Emergency Provider Nurse Practitioner Family; PCP Physician Assistant
DX: R82.998 Other abnormal findings in urine (principal); L29.2 Pruritus vulvae; R80.9 Proteinuria, unspecified
CPT/HCPCS: 81003; 87086; 99213; G0463

== ENCOUNTER 2023-03-30 17:22 | Emergency (ER) | payer OTHER, SELFPAY ==
[2023-03-30 17:25] VITALS: BP 123/72; PULSE 92; RESP 14; TEMP 35.9; O2SAT 99
[2023-03-30 17:37] VITALS: BP 123/72; PULSE 92; RESP 14; TEMP 35.9; O2SAT 99
--- NOTE | 2023-03-30 17:51 | ED.SKABFB ---
HPI - Skin/Abscess/Foreign Bdy General Chief complaint: Skin/Abscess/Foreign Body Stated complaint: Right Leg Bug Bite Source: patient and RN notes reviewed History of Present Illness HPI narrative: 33 yo F presents to urgent care with complaints of an itchy and burning rash to right mid calf since Sunday morning. Pt states she thinks she was bit by something and it continues to get worse and more swollen. Pt states she has been using OTC cortisone cream and Claritin with no relief. Denies any fevers, chills, or new SOB Or chest pain. Pt did vomit x 1 sunday morning. Related Data Home Medications Medication Instructions Recorded Confirmed alprazolam 0.5 mg tablet 0.5 mg PO TID PRN Anxiety 06/21/21 03/30/23 acetaminophen 300 mg-codeine 30 mg See Rx Instructions .Route .COMPLEX 09/26/22 03/30/23 tablet acyclovir 400 mg tablet 400 mg PO DAILY 09/26/22 03/30/23 omeprazole 20 mg capsule,delayed 20 mg PO BID 09/26/22 03/30/23 release sodium chloride 1,000 mg soluble 1,000 mg PO TID 02/02/23 03/30/23 tablet metoprolol tartrate 25 mg tablet 25 mg PO BID 03/30/23 03/30/23 minocycline 100 mg capsule 100 mg PO DAILY 03/30/23 03/30/23 Allergies Allergy/AdvReac Type Severity Reaction Status Date / Time ciprofloxacin Allergy Unknown Unknown Verified 03/30/23 17:35 dexamethasone Allergy Unknown LOC Verified 03/30/23 17:35 diphenhydramine Allergy Unknown Rash Verified 03/30/23 17:35 divalproex sodium Allergy Unknown Unknown Verified 03/30/23 17:35 escitalopram Allergy Unknown Seizure Verified 03/30/23 17:35 levofloxacin Allergy Unknown Unknown Verified 03/30/23 17:35 metoclopramide Allergy Unknown Unknown Verified 03/30/23 17:35 venlafaxine Allergy Unknown Unknown Verified 03/30/23 17:35 Review of Systems Review of Systems: CONSTITUTIONAL: Denies fever, chills, or sweats. EYES: Denies visual changes, redness, or discharge. ENT: Denies otalgia and sore throat CARDIOVASCULAR: Denies chest pain, palpitations, or edema. RESPIRATORY: Denies cough or dyspnea. GASTROINTESTINAL: Denies abdominal pain, nausea, vomiting, or diarrhea. GENITOURINARY: Denies dysuria or hematuria. SKIN: Itching and burning rash to right mid calf MUSCULOSKELETAL: Denies back pain, joint pain, or myalgia. NEUROLOGIC: Denies headache, numbness, or weakness. Pertinent positives per HPI. ON LICENSE OF [facility] Past Medical History Medical History Acute anxiety Migraine SVT (supraventricular tachycardia) Surgical History Surgical History H/O cardiac radiofrequency ablation History of tonsillectomy and adenoidectomy Previous section X2 Family History Family History Mother Family history non-contributory Social History Social History Substance use: never Living arrangements: with family Gender identity (if verbalized by the patient): Female Sexual Orientation (if Verbalized by the Patient): Straight or Heterosexual Spiritual care concerns: No Comments At the time of my signature, I reviewed and agree with the nursing past medical, surgical, social, and family history. There is no relevant family history pertinent to the patient complaint. Exam Narrative: GENERAL: This is a well-nourished, well-developed patient, in no apparent distress. HEAD: normocephalic, atraumatic. EYES: Sclera clear/white. Vision is grossly intact. EARS: External ears normal, auditory canals clear and without drainage. Hearing grossly intact. NOSE: External nose normal with no obvious nasal discharge, nares without redness, no rhinorrhea. THROAT: Mucous membranes moist, posterior pharynx clear. NECK: Neck supple, non-tender without lymphadenopathy, masses or thyromegaly. CARDIOVASCULAR: Regular rate RESPIRATORY:
== END 2023-03-30 17:59 | disposition home or self-care (01) ==
PROVIDERS: Emergency Provider Nurse Practitioner Family
DX: L03.115 Cellulitis of right lower limb (principal); F41.9 Anxiety disorder, unspecified
CPT/HCPCS: 99213; G0463

== ENCOUNTER 2023-04-24 08:52 | Emergency (ER) | payer OTHER, SELFPAY ==
[2023-04-24 09:02] VITALS: BP 127/70; PULSE 96; RESP 20; TEMP 36.5; O2SAT 100
[2023-04-24 09:07] VITALS: BP 127/70; PULSE 96; RESP 20; TEMP 36.5; O2SAT 100
--- NOTE | 2023-04-24 09:48 | ED.URI ---
HPI - URI/Sore Throat General Chief Complaint: Upper Respiratory Infection Stated Complaint: head congestion/headache Time Seen by Provider: 04/24/23 09:20 Source: patient, RN notes reviewed and old records reviewed Mode of arrival: ambulatory Limitations: no limitations History of Present Illness HPI Narrative: 33-year-old female who presents to [facility] with complaints of 2 day history of sore throat,cough, nasal drainage some headache and also diarrhea. Patient reports she has been hot, cold but is unsure if she has had any fever. Patient reports that she does have some body aches she did have the COVID vaccinations without booster,has not had a flu shot this past season.Patient reports that she has taken Coricidin brand decongestant.Patient reports that she has had COVID vaccination but no Boosters, has not had flu shot. MD elicited complaint: cough, sore throat, rhinorrhea and nasal congestion Onset (ago): day(s) (2) Pain scale (0-10): 6 Treatments prior to arrival: other (Coricidin ) Related Data Home Medications Medication Instructions Recorded Confirmed alprazolam 0.5 mg tablet 0.5 mg PO TID PRN Anxiety 06/21/21 04/24/23 acyclovir 400 mg tablet 400 mg PO DAILY 09/26/22 04/24/23 omeprazole 20 mg capsule,delayed 20 mg PO BID 09/26/22 04/24/23 release sodium chloride 1,000 mg soluble 1,000 mg PO TID 02/02/23 04/24/23 tablet metoprolol tartrate 25 mg tablet 25 mg PO BID 03/30/23 04/24/23 minocycline 100 mg capsule 100 mg PO DAILY 03/30/23 04/24/23 Allergies Allergy/AdvReac Type Severity Reaction Status Date / Time ciprofloxacin Allergy Unknown Unknown Verified 04/24/23 09:05 dexamethasone Allergy Unknown LOC Verified 04/24/23 09:05 diphenhydramine Allergy Unknown Rash Verified 04/24/23 09:05 divalproex sodium Allergy Unknown Unknown Verified 04/24/23 09:05 escitalopram Allergy Unknown Seizure Verified 04/24/23 09:05 levofloxacin Allergy Unknown Unknown Verified 04/24/23 09:05 metoclopramide Allergy Unknown Unknown Verified 04/24/23 09:05 venlafaxine Allergy Unknown Unknown Verified 04/24/23 09:05 Review of Systems Review of Systems: CONSTITUTIONAL: Reports malaise, chills, sweats, unknown if fevers EYES: Denies visual changes, redness, or discharge. ENT: Reports rhinorrhea, congestion, sinus pain,no otalgia positive for sore throat. CARDIOVASCULAR: Denies chest pain, palpitations, or edema. RESPIRATORY: Reports cough.? Denies dyspnea. GASTROINTESTINAL: Denies abdominal pain, nausea, vomiting,states some diarrhea SKIN: Denies rash or itching. MUSCULOSKELETAL: Reports myalgia. NEUROLOGIC: Reports headache. All systems reviewed & are unremarkable except as noted in HPI and below PMFSH Past Medical History Medical History (Updated 04/25/23 @ 10:36 by Irene Harrell NP) Acute anxiety Implantable loop recorder present Migraine POTS (postural orthostatic tachycardia syndrome) SVT (supraventricular tachycardia) Surgical History Surgical History H/O cardiac radiofrequency ablation History of tonsillectomy and adenoidectomy Previous section X2 Family History Family History Mother Family history non-contributory Social History Social History (Updated 04/25/23 @ 10:29 by Irene Harrell NP) Smoking packs per day: 1 Smoking cigarettes per day: 20.0 Smoking status: Current every day smoker Alcohol intake: current Alcohol use details: social Substance use: never Living arrangements: with family Gender identity (if verbalized by the patient): Female Sexual Orientation (if Verbalized by the Patient): Straight or Heterosexual Spiritual care concerns: No Comments At time of signature, agree with nursing past medical, surgical, social and family history. There is no relevant family history pertinent to the presenting complaint Exam
== END 2023-04-24 10:11 | disposition home or self-care (01) ==
PROVIDERS: Emergency Provider Registered Nurse; PCP Physician Assistant
DX: J06.9 Acute upper respiratory infection, unspecified (principal); R05.9 Cough, unspecified; Z20.822 Contact with and (suspected) exposure to COVID-19; F17.210 Nicotine dependence, cigarettes, uncomplicated; F41.9 Anxiety disorder, unspecified
CPT/HCPCS: 87426; 99213; C9803; G0463

== ENCOUNTER 2023-11-15 08:49 | Emergency (ER) | payer OTHER, SELFPAY ==
[2023-11-15 08:55] VITALS: BP 119/65; PULSE 80; RESP 20; TEMP 36.5; O2SAT 100
--- NOTE | 2023-11-15 09:18 | ED.SKABFB ---
HPI - Skin/Abscess/Foreign Bdy General Chief complaint: Skin/Abscess/Foreign Body Stated complaint: Swelling on right hand/hip Time Seen by Provider: 11/15/23 09:04 Source: patient, family (significant other), RN notes reviewed and old records reviewed Mode of arrival: ambulatory Limitations: no limitations History of Present Illness HPI narrative: Patient presents today complaining of sudden-onset right forearm pain that started while she was sleeping last night and woke her up from sleep. She describes the pain as burning and states that her hand was swollen when she woke up this morning at 4:00 a.m.. Reports that after running her hand under cold water that some of the swelling in her hand has resolved but she continues to complain that her arms very hot and radiates pain from the hand to the forearm. She is also complaining of an area of firmness and itching to the right hip that started around the same time. Review of patient's chart shows visit to [facility] for similar complaint of right arm in Sep. Related Data Home Medications Medication Instructions Recorded Confirmed alprazolam 0.5 mg tablet 0.5 mg PO TID PRN Anxiety 06/21/21 11/15/23 acyclovir 400 mg tablet 400 mg PO DAILY 09/26/22 11/15/23 omeprazole 20 mg capsule,delayed 20 mg PO BID 09/26/22 11/15/23 release minocycline 100 mg capsule 100 mg PO BID 03/30/23 11/15/23 acetaminophen 300 mg-codeine 30 mg 1 tablet PO TID PRN Pain (Scale 11/15/23 11/15/23 tablet Score 7-10) amitriptyline 25 mg tablet 25 mg PO BID 11/15/23 11/15/23 ketorolac 10 mg tablet 10 mg PO BID 11/15/23 11/15/23 norethindrone (contraceptive) 0.35 0.35 mg PO DAILY 11/15/23 11/15/23 mg tablet ondansetron 4 mg disintegrating 4 mg PO DAILY PRN Nausea And 11/15/23 11/15/23 tablet Vomiting prochlorperazine maleate 10 mg 10 mg PO TID 11/15/23 11/15/23 tablet rizatriptan 10 mg disintegrating 10 mg PO DAILY PRN Migraine 11/15/23 11/15/23 tablet Headache Allergies Allergy/AdvReac Type Severity Reaction Status Date / Time ciprofloxacin Allergy Unknown Unknown Verified 11/15/23 09:05 dexamethasone Allergy Unknown LOC Verified 11/15/23 09:05 diphenhydramine Allergy Unknown Rash Verified 11/15/23 09:05 divalproex sodium Allergy Unknown Unknown Verified 11/15/23 09:05 escitalopram Allergy Unknown Seizure Verified 11/15/23 09:05 levofloxacin Allergy Unknown Unknown Verified 11/15/23 09:05 metoclopramide Allergy Unknown Unknown Verified 11/15/23 09:05 venlafaxine Allergy Unknown Unknown Verified 11/15/23 09:05 Review of Systems Review of Systems: CONSTITUTIONAL: Denies body aches, fever, chills, or sweats. EYES: Denies visual changes, redness, or discharge. ENT: Denies rhinorrhea, congestion, sore throat, or otalgia. CARDIOVASCULAR: Denies chest pain, palpitations, or edema. RESPIRATORY: Denies cough or dyspnea. GASTROINTESTINAL: Denies abdominal pain, nausea, vomiting, or diarrhea. GENITOURINARY: Denies dysuria or hematuria. SKIN: Denies rash, itching, or wounds. MUSCULOSKELETAL:Pain to right hand and forearm. Itching to right hip NEUROLOGIC: Denies headache, numbness, tingling, or weakness. PSYCH: Denies depression or anxiety. [facility] Past Medical History Medical History Acute anxiety Implantable loop recorder present Migraine POTS (postural orthostatic tachycardia syndrome) SVT (supraventricular tachycardia) Surgical History Surgical History H/O cardiac radiofrequency ablation History of tonsillectomy and adenoidectomy Previous section X2 Family History Family History Mother Family history non-contributory Social History Social History Smoking packs per day: 1 Smoking cigarettes per day: 20.0 Smoking status: Cu
== END 2023-11-15 09:30 | disposition home or self-care (01) ==
PROVIDERS: Emergency Provider Nurse Practitioner; PCP Physician Assistant
DX: M79.621 Pain in right upper arm (principal); M79.631 Pain in right forearm; M79.641 Pain in right hand; F17.210 Nicotine dependence, cigarettes, uncomplicated; F41.9 Anxiety disorder, unspecified
CPT/HCPCS: 99213; G0463

== ENCOUNTER 2024-06-18 16:15 | Emergency (ER) | payer OTHER, SELFPAY ==
[2024-06-18 16:23] VITALS: BP 133/74; PULSE 82; RESP 16; TEMP 36.6; O2SAT 99
--- NOTE | 2024-06-18 16:55 | ED.FEMALEGU ---
HPI - Female Genitourinary General Chief complaint: Urogenital-Female Stated complaint: UTI Time Seen by Provider: 06/18/24 16:42 Source: patient, RN notes reviewed and old records reviewed Mode of arrival: ambulatory Limitations: no limitations History of Present Illness HPI Narrative: 34 year old female who presents to [facility] care with complaints of lower abdominal cramping, frequency, burning and urgency of urination with some low grade fevers for the past 3 weeks. Patient reports that she has not had any acute nausea or vomiting but has had some diarrhea. Patient reports that she has been taking AZO and Tylenol for her symptoms.Patient was treat on 06/03/2024 with Keflex for UTI prophylaxis but patient reports she does not think it has helped. MD elicited complaint: UTI Pertinent past history: recurrent UTIs Location of symptoms: suprapubic (cramping and pain), urethra and low back Severity scale (1-10): 7 Treatment prior to arrival: OTC urinary analgesics and other (Tylenol) Related Data Home Medications Medication Instructions Recorded Confirmed alprazolam 0.5 mg tablet 0.5 mg PO TID PRN Anxiety 06/21/21 06/18/24 omeprazole 20 mg capsule,delayed 20 mg PO BID 09/26/22 06/18/24 release acetaminophen 300 mg-codeine 30 mg 1 tablet PO TID PRN Pain (Scale 11/15/23 06/18/24 tablet Score 7-10) norethindrone (contraceptive) 0.35 0.35 mg PO DAILY 11/15/23 06/18/24 mg tablet ondansetron 4 mg disintegrating 4 mg PO DAILY PRN Nausea And 11/15/23 06/18/24 tablet Vomiting rizatriptan 10 mg disintegrating 10 mg PO DAILY PRN Migraine 11/15/23 06/18/24 tablet Headache acyclovir 400 mg tablet 400 mg PO DAILY 06/18/24 06/18/24 albuterol sulfate 90 mcg/actuation 2 puff inhalation Q4H PRN 06/18/24 06/18/24 aerosol inhaler Shortness Of Breath Or Wheezing cephalexin 500 mg capsule 500 mg PO DAILY 06/18/24 06/18/24 cyclobenzaprine 10 mg tablet 10 mg PO TID PRN Muscle Spasm 06/18/24 06/18/24 fluticasone propionate 50 1 spray intranasal BID 06/18/24 06/18/24 mcg/actuation nasal spray,suspension primidone 50 mg tablet 50 mg PO QID 06/18/24 06/18/24 spironolactone 25 mg tablet 25 mg PO BID 06/18/24 06/18/24 Allergies Allergy/AdvReac Type Severity Reaction Status Date / Time ciprofloxacin Allergy Unknown Unknown Verified 06/18/24 17:01 dexamethasone Allergy Unknown LOC Verified 06/18/24 17:01 diphenhydramine Allergy Unknown Rash Verified 06/18/24 17:01 divalproex sodium Allergy Unknown Unknown Verified 06/18/24 17:01 escitalopram Allergy Unknown Seizure Verified 06/18/24 17:01 levofloxacin Allergy Unknown Unknown Verified 06/18/24 17:01 metoclopramide Allergy Unknown Unknown Verified 06/18/24 17:01 venlafaxine Allergy Unknown Unknown Verified 06/18/24 17:01 Review of Systems Review of Systems: CONSTITUTIONAL: States low grade fevers, no chills, or sweats. CARDIOVASCULAR: Denies chest pain, palpitations, or edema. RESPIRATORY: Denies cough or dyspnea. GASTROINTESTINAL: states lower abdominal cramping type abdominal pain, no acute nausea states has chronic nausea, no vomiting, positive for some diarrhea. GENITOURINARY: Reports dysuria, frequency, urgency. Denies flank pain or hematuria. SKIN: Denies rash or itching. MUSCULOSKELETAL: Reports low back pain or myalgia. Denies CVA tenderness NEUROLOGIC: Denies headache All systems reviewed & are unremarkable except as noted in HPI and below PMFSH Past Medical History Medical History Acute anxiety IBS (irritable bowel syndrome) Implantable loop recorder present Migraine POTS (postural orthostatic tachycardia syndrome) SVT (supraventricular tachycardia) Surgical History Surgical History H/O cardiac radiofrequency ablation History of tonsillectomy and adenoidectomy Previous section X2 Family History Family History Mother Family history non-contributory Social History Social History Smoking packs per day: 1 Smoking cigarettes per day: 20.0 Smoking status: Current every day smoker Alcohol intake: current Alcohol use details: social Substance use: never Do You Feel Safe in your Home?: Yes Current Housing: I Have Housing Concerned About Future Housing: No Difficulty Paying Gas/Electric Bills: No Difficulty Paying for Meds: No Currently Unemployed: No Education: Associate Degree Difficulty w/ Childcare or Family Care: No Living arrangements: with family Gender identity (if verbalized by the patient): Female Sexual Orientation (if Verbalized by the Patient): Straight or Heterosexual Spiritual care concerns: No Comments At time of signature, agree with nursing past medical, surgical, social and family history. There is no relevant family history pertinent to the presenting complaint Exam Narrative: GENERAL: Well-appearing, well-nourished, and in no acute distress. HEAD: Normocephalic, atraumatic. NECK: Supple.no lymphadenopathy CHEST: Clear to auscultation. No respiratory distress.SAO2 99% on room air HEART: Regular rate and rhythm. No murmur heard. Normal peripheral pulses. ABDOMEN: Soft, suprapubic tender,No McBurney point tenderness, nondistended, normal active bowel sounds. No CVA tenderness, burning frequency and urgency of urination EXTREMITIES: Normal range of motion. No edema. SKIN: Warm, dry, no rash. NEURO: No focal deficits. Alert and oriented x3. Course Course Emergency Course: Patient is aware of diagnosis, understands and agrees to treatment plan.? Anticipatory guidance given.? Patient agrees to follow-up as directed and is aware of reasons to seek care at the emergency department. Portions of this record may have been created with voice recognition software Level of Care: Express Care Visit Vital Signs Vital signs: Vital Signs Temperature 36.6 C 06/18/24 16:23 Pulse Rate 82 06/18/24 16:23 Respiratory Rate 16 06/18/24 16:23 Blood Pressure 133/74 06/18/24 16:23 Pulse Oximetry 99 06/18/24 16:23 Oxygen Delivery Room Air 06/18/24 16:23 Temperature 36.6 C 06/18/24 16:23 Pulse Rate 82 06/18/24 16:23 Respiratory Rate 16 06/18/24 16:23 Blood Pressure 133/74 06/18/24 16:23 Pulse Oximetry 99 06/18/24 16:23 Oxygen Delivery Room Air 06/18/24 16:23 reviewed MDM - Female Genitourinary MDM Narrative Medical decision making narrative: Exam findings and UA show no acute concerns or changes; patient is non-toxic appearing and is in no distress.? Patient is appropriate for outpatient treatment and follow-up. Differential Diagnosis Differential diagnosis: Likely urinary tract infection, cystitis and other (dysuria, history of IBS) Medical Records Attestation: I reviewed the patient's medical records. Lab Data Attestation: I reviewed the patient's lab results. Lab results narrative: urine dip : Glucose negative bilirubin negative ketone negative specific gravity 1.020, blood 1+, pH 7.0, protein negative, urobilinogen 0.2 nitrate positive leukocyte negative (patient has taken AZO) Labs: Lab Results 06/18/24 Range/Units 17:11 POC Urine Color Yellow POC Urine Clarity Cloudy POC Urine pH 7.0 POC Ur Specif [place] 1.020 POC Urine Protein Negative (Negative) POC Ur Glucose (UA) Negative (Negative) POC Urine Ketones Negative (Negative) POC Urine Blood 1+ (Negative) POC Urine Nitrite Positive (Negative) POC Urine Bilirubin Negative (Negative) POC Urine Urobilinogen 0.2 POC U Leukocyte Esteras Negative (Negative) reviewed Critical Care Time Critical Care Time Critical Care Time: No Discharge Plan Discharge Clinical Impression: Urinary tract infection Qualifiers: Urinary tract infection type: site unspecified Hematuria presence: with hematuria Qualified Code(s): N39.0 - Urinary tract infection, site not specified Patient Disposition: Home, Self-Care Condition: Stable Instructions: Antibiotic Form, Urinary Tract Infection in Women (ED) Additional Instructions: Increase fluids especially cranberry juice and water Avoid caffeine and carbonated beverages Antibiotic as directed Tylenol/ibuprofen for pain or fever Follow-up with her primary care provider if further problems or concerns Recheck if you have fever over 101, nausea and vomiting. If your symptoms persist, change or worsen significantly before you can contact your personal physician then please, without delay, go to the emergency department for further evaluation. Follow-up with PCP in 7-10 days or sooner if needed Follow up with PCP soon in regards to your blood pressure which is elevated above threshold for referral. Blood pressure above 120/80 may indicate pre-hypertension. 133/74 Prescriptions: New nitrofurantoin monohyd/m-cryst [Macrobid] 100 mg capsule 100 mg PO Q12H 7 Days Qty: 14 0RF Rx Instructions: must administer with a meal/food No Action omeprazole 20 mg capsule,delayed release(DR/EC) 20 mg PO BID fluticasone propionate 50 mcg/actuation spray,suspension 1 spray INTRANASAL BID albuterol sulfate 90 mcg/actuation HFA aerosol inhaler 2 puff INHALATION Q4H PRN (Reason: Shortness Of Breath Or Wheezing) cephalexin 500 mg capsule 500 mg PO DAILY spironolactone 25 mg tablet 25 mg PO BID acyclovir 400 mg tablet 400 mg PO DAILY primidone 50 mg tablet 50 mg PO QID cyclobenzaprine 10 mg tablet 10 mg PO TID PRN (Reason: Muscle Spasm) alprazolam 0.5 mg tablet 0.5 mg PO TID PRN (Reason: Anxiety) rizatriptan 10 mg tablet,disintegrating 10 mg PO DAILY PRN (Reason: Migraine Headache) ondansetron 4 mg tablet,disintegrating 4 mg PO DAILY PRN (Reason: Nausea And Vomiting) acetaminophen-codeine 300-30 mg tablet 1 tablet PO TID PRN (Reason: Pain (Scale Score 7-10)) norethindrone (contraceptive) 0.35 mg tablet 0.35 mg PO DAILY Follow-up/Referrals: Jorge Alberto,REBECA Sweeney [Primary Care Provider] - Time of Disposition: 17:32 Quality Dorota Coma Scale Eyes: Open Verbal: Oriented and Alert Motor: Follows Commands [place] Coma Total Score: 15
[2024-06-18 17:12] LABS: EDUAAPPEAR Cloudy; EDUABILI Negative (Negative); EDUABLOOD 1+ (Negative); EDUACOLOR1 Yellow; EDUAGLUCOSE Negative (Negative); EDUAKETONE Negative (Negative); EDUALEUKO Negative (Negative); EDUANITRATE Positive (Negative); EDUAPROTEIN Negative (Negative); EDUAUROBILI 0.2
== END 2024-06-18 17:40 | disposition home or self-care (01) ==
PROVIDERS: Emergency Provider Registered Nurse; PCP Physician Assistant
DX: N39.0 Urinary tract infection, site not specified (principal); F17.210 Nicotine dependence, cigarettes, uncomplicated; F41.9 Anxiety disorder, unspecified
CPT/HCPCS: 81003; 87086; 99213; G0463

== ENCOUNTER 2025-05-06 14:16 | Emergency (ER) | payer BC, SELFPAY ==
[2025-05-06 14:22] VITALS: BP 129/78; PULSE 77; RESP 18; TEMP 36.6; O2SAT 100
--- OUTSIDE RECORDS SUMMARY | 2025-05-06 14:53 | XMS_ITS | Encounter Summary ---
Author Organization [facility] Address [address] [place] [address] Phone Care Team Providers Care Nutrition Assistant Name Role Phone Rajiv Azul Primary Care Provider [phone] Encounter Details Date Type Department Care Team (Late st Contact Info) Description 01/30/2024 Transcribe Orders [facility] Center [address] [place] [address] Soniya Mcclure, GUEST SERVICE SUPERVISOR, LOAN PROCESSING SUPERVISOR [address] [place], [place] [id number] Social History Tobacco Use Types Packs/Day Years Used Date Smoking Tobacco: Every Day Cigarettes Smokeless Tobacco: Never Alcohol Use Standard Drinks/Week Comments No 0 (1 standard drink = 0.6 oz pur e alcohol) Comments No Sex and Gender Information Value Date Recorded Sex Assigned at Not on file Legal Sex Female 12:36 AM CDT Gender Identity Not on file Sexual Orientation Not on file documented as of this encounter Plan of Treatment Not on file documented as of this encounter Visit Diagnoses Not on filedocumented in this encounter Care Teams Nutrition Assistant Relationship Specialty Start Date End Date Rajiv Azul PAC [address] [place] [address] PCP - General Physician Host 04/16/20 documented as of this encounter
--- OUTSIDE RECORDS SUMMARY | 2025-05-06 14:53 | XMS_ITS | Clinical Summary ---
Author Organization [facility] Address [address] [place] [address] Phone Care Team Providers Care Budget Clerk Name Role Phone Rajiv Azul LIT Primary Care Provider [phone] Allergies Active Allergy Reactions Criticality Noted Date Comments Diphenhydramine Unknown 07/06/2015 Ciprofloxacin Rash,Vomiting 07/06/2015 Dexamethasone Other (see Comments) 04/28/2017 LOC Valproic Acid Unknown 07/06/2015 Venlafaxine Unknown 07/06/2015 Levofloxacin In D5w Rash,Vomiting 10/21/2015 Escitalopram Oxalate Unknown 07/06/2015 Metoclopramide Nausea 07/17/2016 Medications albuterol (PROVENTIL, VENTOLIN) (2.5 MG/3ML) 0.083% Nebulizer Soln 2.5 mg by Nebulization route once. Active ALPRAZolam (XANAX) 0.25 MG Tablet Take 0.25 mg by mouth 3 times daily as needed. Active albuterol (PROAIR HFA) 108 (90 BASE) MCG/ACT Aerosol Solution take 2 Puffs by inhalation every 4 hours as needed for Wheezing. 8.5 g 0 6 Active meclizine (ANTIVERT) 25 MG Tablet Take 1 Tab by mouth 3 times daily as needed. 30 Tab 0 6 Active ondansetron (ZOFRAN) 4 MG Tablet Take 1 Tab by mouth every 8 hours as needed for Nausea. 10 Tab 0 6 Active QUEtiapine (SEROQUEL) 25 MG Tablet Take 25 mg by mouth nightly as needed. Active Norethin Ozzy-Eth Estrad-FE (TAYTULLA) 1-20 MG-MCG(24) Capsule Take by mouth. Activ e prochlorperazin e (COMPAZINE) 5 MG Tablet Take 1-2 Tabs by mouth 2 times daily as needed (Take for severe headache, take with Toradol). 20 Tab 7 Active FLUoxetine HCl (PROZAC PO) Take by mouth. Act ankita MINOCYCLINE HCL PO Take by mouth. Activ e TiZANidine HCl (ZANAFLEX) 4 MG Capsule Take 4 mg by mouth 3 times daily. Active predniSONE (DELTASONE) 10 MG Tablet TAKE 4 TABLETS DAILY X3 DAYS THEN 3 TABLETS DAILY X3 DAYS THEN 2 TABLETS DAILY X3 DAYS THEN 1 TABLET DAILY X3 DAYS 30 Tab 0 Active HYDROcodone-ozzy taminophen (NORCO) 10-325 MG Tablet Take 1 Tab by mouth every 6 hours as needed for Moderate or more severe pain. 10 Tab 0 Active HYDROcodone-ozzy taminophen (NORCO) 5-325 MG TabletIndicatio ns:Acute left-sided low back pain with left-sided sciatica Take 1-2 Tablets by mouth every 4 hours as needed for Moderate or more severe pain for up to 13 doses. 20 Tablet 4 Active Active Problems No known active problems Social History Tobacco Use Types Packs/Day Years Used Date Smoking Tobacco: Every Day Cigarettes Smokeless Tobacco: Never Tobacco Cessation:Ready to Q uit: Not Asked; Counseling Given: Not Answered Alcohol Use Standard Drinks/Week Comments No 0 (1 standard drink = 0.6 oz pur e alcohol) Comments No Sex and Gender Information Value Date Recorded Sex Assigned at Not on file Legal Sex Female 12:36 AM CDT Gender Identity Not on file Sexual Orientation Not on file Last Filed Vital Signs Vital Sign Reading Time Taken Comments Blood Pressure 117/62 03/17/2024 7:56 AM CDT Pulse 84 03/17/2024 7:56 AM CDT Temperature 36.3 C (97.3 F) 03/17/2024 6:13 AM CDT Respiratory Rate 16 03/17/2024 7:56 AM CDT Oxygen Saturation 100% 03/17/2024 6:13 AM CDT Inhaled Oxygen Concentration - - Weight 101.6 kg (224 lb) 03/17/2024 6:13 AM CDT Height 170.2 cm (5' 7) 03/17/2024 6:13 AM CDT Body Mass Index 35.08 03/17/2024 6:13 AM CDT Plan of Treatment Health Maintenance Due Date Last Done Comments Hepatitis C Virus (HCV) Screening 1988 TdaP Immunization 1988 Hepatitis B Immunization (1 of 3 - 19+ 3-dose series) 2007 Pneumococcal Immunization Combined (1 of 2 - PCV) 2007 Pap Smear 2009 Human Papillomavirus (HPV) Immunization (1 - 3-dose SCDM series) 2015 Cervical Cancer Screening (CCS) 2018 HPV/Cotest 2018 Influenza Immunization (#1) 2025 SARS-COV-2 Immunization ( - season) 2025 02/03/2021, 01/13/2021 Respiratory Syncytial Virus (RSV) Immunization (Adult) (1 - 1-dose 75+ series) 2063 Meningococcal Immunization (ACWY) Aged Out No longer eligible b ased on patient's age to complete this topic Rotavirus Immunization Aged Out No lo nger eligible based on patient's age to complete this topic Insurance MEDICAID [employer] Care Teams Budget Clerk Relationship Specialty Start Date End Date Rajiv Azul PAC [address] [place] [address] PCP - General Physician Pointer Helper 04/16/20
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
--- NOTE | 2025-05-06 15:06 | ED.GENADULT ---
HPI - General Adult General Chief complaint: Ear Stated complaint: Dizzy spells/ears/kidney pain Time Seen by Provider: 05/06/25 14:53 Source: patient and RN notes reviewed Mode of arrival: ambulatory Limitations: no limitations History of Present Illness HPI narrative: patient presents today complaining of right ear pain with intermittent muffled hearing and sharp pains, dizziness, and hot flashes since yesterday as well as urinary frequency and bilateral low back pain since this morning. She also had some syncope/near syncope episodes at work today. She called her PCP this morning, who called and got her an appt with her neurologist in Hx of POTS and SVT. PCP advised to go to the ER. Related Data Home Medications ?Medication ?Instructions ?Recorded ?Confirmed ?Last Taken ?Type alprazolam 0.5 mg tablet 0.5 mg PO TID PRN Anxiety 06/21/21 06/18/24 Unknown History omeprazole 20 mg capsule,delayed 20 mg PO BID 09/26/22 06/18/24 Unknown History release acetaminophen 300 mg-codeine 30 mg 1 tablet PO TID PRN Pain (Scale 11/15/23 06/18/24 Unknown History tablet Score 7-10) norethindrone (contraceptive) 0.35 0.35 mg PO DAILY 11/15/23 06/18/24 Unknown History mg tablet rizatriptan 10 mg disintegrating 10 mg PO DAILY PRN Migraine 11/15/23 06/18/24 Unknown History tablet Headache acyclovir 400 mg tablet 400 mg PO DAILY 06/18/24 06/18/24 Unknown History albuterol sulfate 90 mcg/actuation 2 puff inhalation Q4H PRN 06/18/24 06/18/24 Unknown History aerosol inhaler Shortness Of Breath Or Wheezing cyclobenzaprine 10 mg tablet 10 mg PO TID PRN Muscle Spasm 06/18/24 06/18/24 Unknown History fluticasone propionate 50 1 spray intranasal BID 06/18/24 06/18/24 Unknown History mcg/actuation nasal spray,suspension primidone 50 mg tablet 50 mg PO QID 06/18/24 06/18/24 Unknown History spironolactone 25 mg tablet 25 mg PO BID 06/18/24 06/18/24 Unknown History Allergies Allergy/AdvReac Type Severity Reaction Status Date / Time ciprofloxacin Allergy Unknown Unknown Verified 05/06/25 14:25 dexamethasone Allergy Unknown LOC Verified 05/06/25 14:25 diphenhydramine Allergy Unknown Rash Verified 05/06/25 14:25 divalproex sodium Allergy Unknown Unknown Verified 05/06/25 14:25 escitalopram Allergy Unknown Seizure Verified 05/06/25 14:25 levofloxacin Allergy Unknown Unknown Verified 05/06/25 14:25 metoclopramide Allergy Unknown Unknown Verified 05/06/25 14:25 venlafaxine Allergy Unknown Unknown Verified 05/06/25 14:25 PMFSH Past Medical History Medical History IBS (irritable bowel syndrome) Implantable loop recorder present POTS (postural orthostatic tachycardia syndrome) Migraine Acute anxiety SVT (supraventricular tachycardia) Surgical History Surgical History H/O cardiac radiofrequency ablation Previous section X2 History of tonsillectomy and adenoidectomy Family History Family History Mother Family history non-contributory Social History Social History Smoking packs per day: 1 Smoking cigarettes per day: 20.0 Smoking status: Current every day smoker Alcohol intake: current Alcohol use details: social Substance use: never Do You Feel Safe in your Home?: Yes Current Housing: I Have Housing Concerned About Future Housing: No Difficulty Paying Gas/Electric Bills: No Difficulty Paying for Meds: No Currently Unemployed: No Education: Associate Degree Difficulty w/ Childcare or Family Care: No Living arrangements: with family Gender identity (if verbalized by the patient): Female Sexual Orientation (if Verbalized by the Patient): Straight or Heterosexual Spiritual care concerns: No Comments At time of signature, I have reviewed and agree with nursing past medical, surgical, social and family history unless otherwise noted. Please see nursing chart for further information. There is no relevant family history pertinent to the presenting complaint Exam Narrative: GENERAL: Well-appearing, well-nourished, and in no acute distress. HEAD: Normocephalic, atraumatic. EYES: EOMI. No redness or drainage. Conjunctivae normal. ENT: Mucous membranes pink and moist. Nares clear. No rhinorrhea. TMs normal bilaterally. NECK: Normal AROM. CHEST: No respiratory distress. Clear to auscultation. HEART: Regular rate and rhythm. No murmur appreciated. Normal peripheral pulses. ABDOMEN: Soft, nontender, nondistended, normal active bowel sounds. EXTREMITIES: Normal range of motion. No edema. SKIN: Warm, dry, no rash. Capillary refill normal. Normal skin turgor. NEURO: No focal deficits. Alert and oriented x3. Gait steady. PSYCH: Normal affect. No signs of depression or anxiety. Course Course Level of Care: Express Care Visit Vital Signs Vital signs: Vital Signs Temperature 97.8 F 05/06/25 14:22 Pulse Rate 77 05/06/25 14:22 Respiratory Rate 18 05/06/25 14:22 Blood Pressure 129/78 05/06/25 14:22 Pulse Oximetry 100 05/06/25 14:22 Oxygen Delivery Room Air 05/06/25 14:22 Temperature 97.8 F 05/06/25 14:22 Pulse Rate 77 05/06/25 14:22 Respiratory Rate 18 05/06/25 14:22 Blood Pressure 129/78 05/06/25 14:22 Pulse Oximetry 100 05/06/25 14:22 Oxygen Delivery Room Air 05/06/25 14:22 Reviewed Medical Decision Making MDM Narrative Medical decision making narrative: 35-year-old female patient presents today with complaints of dizziness, nausea, right ear pain, back pain, urinary frequency. Patient has history of POTS and SVT. PCP advised patient to go to the ER today. Patient exam was normal today. UA shows trace blood, but was otherwise normal. Patient states she does not menstruate as she is on continuous BCP. Will treat patient will Macrobid for presumed UTI while waiting on urine culture results. As her ear exam is normal and does not explain her dizziness and near syncopal episodes today, recommend she be transferred to the ER today for further evaluation. Patient declines transfer today. VSS. Differential Diagnosis Differential Diagnosis: AOM, otitis externa, ruptured TM, serous otitis, vertigo, BPPV, POTS, arrhythmia, uti Vital Signs Vital Signs: Vital Signs Temperature 97.8 F 05/06/25 14:22 Pulse Rate 77 05/06/25 14:22 Respiratory Rate 18 05/06/25 14:22 Blood Pressure 129/78 05/06/25 14:22 Pulse Oximetry 100 05/06/25 14:22 Oxygen Delivery Room Air 05/06/25 14:22 Temperature 97.8 F 05/06/25 14:22 Pulse Rate 77 05/06/25 14:22 Respiratory Rate 18 05/06/25 14:22 Blood Pressure 129/78 05/06/25 14:22 Pulse Oximetry 100 05/06/25 14:22 Oxygen Delivery Room Air 05/06/25 14:22 Lab Data Labs: Lab Results 05/06/25 Range/Units 15:16 POC Urine Color Yellow POC Urine Clarity Clear POC Urine pH 6.5 POC Ur Specif [place] 1.030 POC Urine Protein Negative (Negative) POC Ur Glucose (UA) Negative (Negative) POC Urine Ketones Negative (Negative) POC Urine Blood Trace (Negative) POC Urine Nitrite Negative (Negative) POC Urine Bilirubin Negative (Negative) POC Urine Urobilinogen 0.2 POC U Leukocyte Esteras Negative (Negative) Critical Care Time Critical Care Time Critical Care Time: No Discharge Plan Discharge Clinical Impression: Acute pain of right ear, Dizziness UTI (urinary tract infection) Qualifiers: Urinary tract infection type: acute cystitis Hematuria presence: with hematuria Qualified Code(s): N30.01 - Acute cystitis with hematuria Patient Disposition: Home Condition: Stable Instructions: Antibiotic Form, Urinary Tract Infection in Women (DC), Dizziness (ED) Additional Instructions: Please take the Macrobid as prescribed for UTI symptoms. You will be notified in a few days if your antibiotic needs to be changed out based on urine culture results. Take the Zofran for nausea if needed. You have refused transfer to the emergency room for your dizziness symptoms. Your blood pressure was elevated above 120/80 today at Urgent Care. This puts you above the threshold for follow up. Please schedule a followup visit with your personal physician as soon as possible, for further evaluation and treatment. Even blood pressure exceeding 120/80 may indicate pre-hypertension. Patient Language: Divehi Prescriptions: New ondansetron 4 mg tablet,disintegrating 4 mg PO TID PRN (Reason: nausea and vomiting) Qty: 15 0RF nitrofurantoin monohyd/m-cryst [Macrobid] 100 mg capsule 100 mg PO Q12H 5 Days Qty: 10 0RF Rx Instructions: must administer with a meal/food No Action omeprazole 20 mg capsule,delayed release(DR/EC) 20 mg PO BID fluticasone propionate 50 mcg/actuation spray,suspension 1 spray INTRANASAL BID albuterol sulfate 90 mcg/actuation HFA aerosol inhaler 2 puff INHALATION Q4H PRN (Reason: Shortness Of Breath Or Wheezing) spironolactone 25 mg tablet 25 mg PO BID acyclovir 400 mg tablet 400 mg PO DAILY primidone 50 mg tablet 50 mg PO QID cyclobenzaprine 10 mg tablet 10 mg PO TID PRN (Reason: Muscle Spasm) alprazolam 0.5 mg tablet 0.5 mg PO TID PRN (Reason: Anxiety) rizatriptan 10 mg tablet,disintegrating 10 mg PO DAILY PRN (Reason: Migraine Headache) acetaminophen-codeine 300-30 mg tablet 1 tablet PO TID PRN (Reason: Pain (Scale Score 7-10)) norethindrone (contraceptive) 0.35 mg tablet 0.35 mg PO DAILY Follow-up/Referrals: Jorge Alberto,REBECA Sweeney [Primary Care Provider] Stand Alone Forms: Work/School Release IP Time of Disposition: 15:13
[2025-05-06 15:18] LABS: EDUAAPPEAR Clear; EDUABILI Negative (Negative); EDUABLOOD Trace (Negative); EDUACOLOR1 Yellow; EDUAGLUCOSE Negative (Negative); EDUAKETONE Negative (Negative); EDUALEUKO Negative (Negative); EDUANITRATE Negative (Negative); EDUAPH 6.5; EDUAPROTEIN Negative (Negative); EDUASPGRAVITY 1.030; EDUAUROBILI 0.2
== END 2025-05-06 15:15 | disposition home or self-care (01) ==
PROVIDERS: Emergency Provider Nurse Practitioner; PCP Physician Assistant
DX: H92.01 Otalgia, right ear (principal); R42 Dizziness and giddiness; N30.01 Acute cystitis with hematuria; F17.210 Nicotine dependence, cigarettes, uncomplicated; F41.9 Anxiety disorder, unspecified
CPT/HCPCS: 81003; 87086; 99213; G0463